=== PATIENT | male | born 1995 | race African-American/Black ===

== ENCOUNTER 2016-12-27 12:56 | Emergency (ER) | payer SELFPAY ==
[~2016-12-27 12:56] MED LIST: IBUP800T23 PO
[2016-12-27 12:58] VITALS: BP 114/60; PULSE 106; RESP 20; TEMP 99.4; O2SAT 97
[2016-12-27 17:02] VITALS: BP 115/65; PULSE 93; RESP 18; O2SAT 100
--- NOTE | 2016-12-27 17:11 | PD ---
HPI Chief Complaint: Medical Clearance Time Seen by Provider: 17:00 Travel History International Travel<30 days: No Contact w/Intl Traveler<30days: No Traveled to known affect area: No History of Present Illness HPI PATIENT DENIES ANY PSHX AND ONLY PMHX IS ADD FOR WHICH HE SHOULD BE ON MEDICATION FOR BUT HAS NOT BEEN SINCE HIGH SCHOOL. (HIVES REACTION TO AMOXIL). OVER THE LAST 3 MONTHS PATIENT COMPLAINTS OF HAIR LOSS, WEIGHT LOSS AND NOW SOME "DOTS" THAT ARE APPEARING THROUGHOUT HIS FEET AND BODY, DESPITE USING DIFFERENT SOAP AND LOTIONS....NO AGGRAVATING/ALLEVIATING FACTORS. DENIES FEVER /COUGH/URI SX/ WHILE WITH MOTHER IN ROOM PATIENT DID NOT WISH TO ADDRESS ANY HISTORY OF SEXUAL ACTIVITY INCLUDING HIGH RISK BEHAVIORS, AND DIDNOT WISH TO HAVE MOM LEAVE BEDSIDE EITHER. PFSH Past Medical History ADD: Yes Diminished Hearing: No Immunizations Current: Yes Social History Alcohol Use: No Tobacco Use: No Substance Use: No Allergies-Medications (Allergen,Severity, Reaction): Coded Allergies: Amoxicillin (Verified Allergy, Intermediate, RASH, 12/27/16) Reported Meds & Prescriptions Reported Meds & Active Scripts Active No Active Prescriptions or Reported Medications Review of Systems General / Constitutional: Positive: Weight Loss Skin: Positive Rash, Positive Alopecia Physical Exam Narrative GENERAL: SKIN: Warm and dry. A FEW (LESS THAN 20 LESIONS IN ENTIRE BODY SURFACE AREA) HYPERPIGMENTED FLAT MACULES FOUND THROUGHOUT BODY WELL SOME ON SOLES OF FEET THOUGH NOT INVOLVING HANDS/MOUTH HEAD: Atraumatic. Normocephalic. EYES: Pupils equal and round. No scleral icterus. No injection or drainage. ENT: No nasal bleeding or discharge. Mucous membranes pink and moist. NECK: Trachea midline. No JVD. CARDIOVASCULAR: Regular rate and rhythm. RESPIRATORY: No accessory muscle use. Clear to auscultation. Breath sounds equal bilaterally. GASTROINTESTINAL: Abdomen soft, non-tender, nondistended. Hepatic and splenic margins not palpable. MUSCULOSKELETAL: Extremities without clubbing, cyanosis, or edema. No obvious deformities. NEUROLOGICAL: Awake and alert. No obvious cranial nerve deficits. Motor grossly within normal limits. Five out of 5 muscle strength in the arms and legs. Normal speech. PSYCHIATRIC: Appropriate mood and affect; insight and judgment normal. Data Data Last Documented VS Vital Signs Date Time Temp Pulse Resp B/P Pulse Ox O2 Delivery O2 Flow Rate FiO2 12/27/16 17:02 93 18 115/65 100 Room Air 12/27/16 12:58 99.4 Orders Complete Blood Count With Diff (12/27/16 13:57) Comprehensive Metabolic Panel (12/27/16 13:57) Urinalysis - C+S If Indicated (12/27/16 13:57) Thyroid Stimulating Hormone (12/27/16 17:00) Drug Screen, Random Urine (12/27/16 17:00) Alcohol (Ethanol) (12/27/16 17:00) Salicylates (Aspirin) (12/27/16 17:00) Tylenol (Acetaminophen) (12/27/16 17:00) Labs Laboratory Tests Test 12/27/16 12/27/16 12/27/16 16:00 16:10 16:30 Thyroid Stimulating Hormone 1.260 uIU/ML 3rd Gen Salicylates Level LESS THAN 1.7 MG/DL Acetaminophen Level LESS THAN 2.0 MCG/ML Ethyl Alcohol Level 4 MG/DL Urine Color YELLOW Urine Turbidity CLEAR Urine pH 6.5 Urine Specific [place] 1.022 Urine Protein TRACE mg/dL Urine Glucose (UA) NEG mg/dL Urine Ketones NEG mg/dL Urine Occult Blood NEG Urine Nitrite NEG Urine Bilirubin NEG Urine Urobilinogen LESS THAN 2.0 MG/DL Urine Leukocyte Esterase NEG Urine RBC 1 /hpf Urine WBC 1 /hpf Urine Bacteria RARE /hpf Urine Mucus FEW /lpf Microscopic Urinalysis Comment CULT NOT INDICATED Urine Opiates Screen NEG Urine Barbiturates Screen NEG Urine Amphetamines Screen NEG Urine Benzodiazepines Screen NEG Urine Cocaine Screen NEG Urine Cannabinoids Screen POS White Blood Count 6.5 TH/MM3 Red Blood Count 4.03 MIL/MM3 Hemoglobin 11.9 GM/DL Hematocrit 35.8 % Mean Corpuscular Volume 88.9 FL Mean Corpuscular Hemoglobin 29.6 PG Mean Corpuscular Hemoglobin 33.3 % Concent Red Cell Distribution Width 15.4 % Platelet Count 166 TH/MM3 Mean Platelet Volume 9.7 FL Neutrophils (%) (Auto) 38.8 % Lymphocytes (%) (Auto) 46.7 % Monocytes (%) (Auto) 12.9 % Eosinophils (%) (Auto) 1.4 % Basophils (%) (Auto) 0.2 % Neutrophils # (Auto) 2.5 TH/MM3 Lymphocytes # (Auto) 3.0 TH/MM3 Monocytes # (Auto) 0.8 TH/MM3 Eosinophils # (Auto) 0.1 TH/MM3 Basophils # (Auto) 0.0 TH/MM3 CBC Comment AUTO DIFF Differential Total Cells 100 Counted Neutrophils % (Manual) 39 % Band Neutrophils % 6 % Lymphocytes % 38 % Monocytes % 17 % Neutrophils # (Manual) 2.9 TH/MM3 Differential Comment FINAL DIFF MANUAL Platelet Estimate NORMAL Platelet Morphology Comment NORMAL Red Cell Morphology Comment NORMAL Sodium Level 136 MEQ/L Potassium Level 4.1 MEQ/L Chloride Level 104 MEQ/L Carbon Dioxide Level 26.6 MEQ/L Anion Gap 5 MEQ/L Blood Urea Nitrogen 12 MG/DL Creatinine 0.90 MG/DL Estimat Glomerular Filtration 129 ML/MIN Rate Random Glucose 65 MG/DL Calcium Level 9.1 MG/DL Total Bilirubin 0.5 MG/DL Aspartate Amino Transf 31 U/L (AST/SGOT) Alanine Aminotransferase 25 U/L (ALT/SGPT) Alkaline Phosphatase 124 U/L Total Protein 10.3 GM/DL Albumin 3.3 GM/DL [facility] Medical Decision Making Medical Screen Exam Complete: Yes Emergency Medical Condition: Yes Medical Record Reviewed: Yes Differential Diagnosis THYROID CONDITION V ELECTROLYTE ABNL V LIVER DISEASE V KIDNEY DISEASE V BLOOD BORNE PATHOGENS SUCH HEPATITIS OR HIV BY SUGGESTION OF ANY LEUKOPENIA Narrative Course ADVISED PATIENT OF NORMAL LFT'S, NL TSH, NL ELECTROLYTES AND RENAL STATUS...FURTHER TESTING NEEDS TO BE DONE INCLUDING HIV TESTING TO EVALUATE WEIGHT LOSS Diagnosis Primary Impression: MEDICAL CLEARANCE Additional Instructions: REFER TO [facility] FOR FURTHER OUTPATIENT TESTING Scripts No Active Prescriptions or Reported Meds Disposition: 01 DISCHARGE HOME Condition: Stable Dusty Alegria MD Dec 27, 2016 17:11
[2016-12-27 17:13] LABS: AUTOMATED NEUTROPHIL # 2.5 TH/MM3 (1.8-7.7); BASOPHIL % 0.2 % (0.0-2.0); EOSINOPHIL # 0.1 TH/MM3 (0-0.4); EOSINOPHIL % 1.4 % (0.0-4.0); HEMATOCRIT 35.8 % (39.0-51.0); LYMPH % 46.7 % (9.0-44.0); MEAN CELL VOLUME 88.9 FL (80.0-100.0); MEAN CORPUSCULAR HEMOGLOBIN 29.6 PG (27.0-34.0); MEAN CORPUSCULAR HGB CONC 33.3 % (32.0-36.0); MONO % 12.9 % (0.0-8.0); NEUT % 38.8 % (16.0-70.0); PLATELET COUNT 166 TH/MM3 (150-450); RED BLOOD COUNT 4.03 MIL/MM3 (4.50-5.90); RED CELL DISTRIBUTION WIDTH 15.4 % (11.6-17.2); WHITE BLOOD COUNT 6.5 TH/MM3 (4.0-11.0)
[2016-12-27 17:15] LABS: HEMO FLAGS AUTO DIFF
[2016-12-27 17:27] LABS: BACTERIA, URINE RARE /hpf; BLOOD, URINE NEG (NEG); COMMENT (UR) CULT NOT INDICATED; CULTURE IF INDICATED CULT NOT INDICATED; GLUCOSE,URINE NEG (NEG); KETONE, URINE NEG (NEG); MUCUS URINE FEW /lpf (OCC); NITRITE,URINE NEG (NEG); PH, URINE 6.5 (5.0-8.5); URINE COLOR YELLOW (YELLW/STRAW)
[2016-12-27 17:30] LABS: AMPHETAMINE, URINE NEG (NEG); BARBITURATES, URINE NEG (NEG); COCAINE, URINE NEG (NEG)
[2016-12-27 17:33] LABS: ANION GAP 5 MEQ/L (5-15); AST (GOT) 31 U/L (15-37); BICARBONATE 26.6 MEQ/L (21.0-32.0); BLOOD UREA NITROGEN 12 MG/DL (7-18); CHLORIDE 104 MEQ/L (98-107); GLOMERULAR FILTRATION RATE 129 ML/MIN (>89); POTASSIUM 4.1 MEQ/L (3.5-5.1); SODIUM (NA) 136 MEQ/L (136-145)
[2016-12-27 17:34] LABS: ALT (GPT) 25 U/L (12-78)
[2016-12-27 17:35] LABS: ACETAMINOPHEN LESS THAN 2.0 MCG/ML (10.0-30.0)
[2016-12-27 17:36] LABS: ALKALINE PHOSPHATASE 124 U/L (45-117); TOTAL BILIRUBIN ADULT 0.5 MG/DL (0.2-1.0)
[2016-12-27 18:29] LABS: BANDS 6 % (0-6); NEUTROPHIL # MANUAL DIFF 2.9 TH/MM3 (1.8-7.7); POLYS (SEG NEUTROPHILS) 39 % (16-70); WBC DIFF SAMPLE 100
[2016-12-27 18:30] LABS: PLATELET ESTIMATE SMEAR NORMAL (NORMAL); PLATELET MORPHOLOGY NORMAL (NORMAL); SCAN/DIFF FINAL DIFF MANUAL
== END 2016-12-27 19:01 | disposition home or self-care (01) ==
LOC: NEPC 12:56
DX: R21 Rash and other nonspecific skin eruption (principal); L65.9 Nonscarring hair loss, unspecified; R63.4 Abnormal weight loss; Z88.0 Allergy status to penicillin
CPT/HCPCS: 80053; 80307; 81001; 84443; 85007; 85027; 99283

== ENCOUNTER → 2017-08-13 | Outpatient (CLI) | payer OTHER ==
--- NOTE | 2017-08-13 14:25 | RADRPT ---
EXAM DATE/TIME: 08/13/2017 13:19 [place] COMPARISON: No previous studies available for comparison. INDICATIONS : Cough MEDICAL HISTORY : None. SURGICAL HISTORY : None. ENCOUNTER: Initial ACUITY: 1 day PAIN SCORE: LOCATION: FINDINGS: PA and lateral views of the chest demonstrate the lungs to be symmetrically aerated without evidence of mass, infiltrate or effusion. The cardiomediastinal contours are unremarkable. Osseous structure s are intact. CONCLUSION: 1. No acute cardiopulmonary disease. Macario Jones MD on August 13, 2017 at 14:23 Board Certified Radiologist. This report was verified electronically.
== END ==
LOC: HRAD 12:39
DX: R05 Cough (principal)
CPT/HCPCS: 71046